=== PATIENT | male | born 1945 | race Caucasian/White ===

== ENCOUNTER 2021-05-01 13:20 | Inpatient (IN) ==
[2021-05-01] MEDS ORDERED: Naloxone 0.4 MG/ML INJ IVP PRN (15:52)
[2021-05-01] MEDS ORDERED: Ondansetron 4 MG/2 ML VIAL IVP PRN (15:52)
[2021-05-01] MEDS ORDERED: Dextrose Gel 15 GM/37.5 ML TUBE PO PRN ×2 (15:56)
[2021-05-01] MEDS ORDERED: D5% in Water 1,000 ML IVC PRN (15:56)
[2021-05-01] MEDS ORDERED: *HR* Dextrose 50 % in Water (Syg) 50 ML SYRINGE IVP PRN (15:56)
[2021-05-01] MEDS ORDERED: Perflutren Lipid Microsphere 1.3 ML in 0.9 % Sodium Chloride 8.7 ML IVP PRN (15:57)
[2021-05-01] MEDS ORDERED: *HR* Heparin 5,000 UNIT/ML VIAL IVP ONE (16:29)
[2021-05-01] MEDS ORDERED: *HR* Heparin 5,000 UNIT/ML VIAL IVP PRN ×2 (16:29)
[2021-05-01] MEDS ORDERED: Insulin NPH/REG 70/30 100 UNIT/ML (x5UNIT) SUBQ SCH ×2 (16:30→21:00)
[2021-05-01] MEDS: Insulin LISPRO 300 UNITS/3 ML VIAL SUBQ SCH ×2 (17:21→20:13)
[2021-05-01 18:09] LABS: Hematocrit 43.1 % (37.5-50.1); Hemoglobin 14.2 g/dL (12.9-16.9); Mean Corpuscular HGB Conc 32.9 g/dL (31.6-35.5); Mean Corpuscular Hemoglobin 29.5 pg (28.0-33.3); Mean Corpuscular Volume 89.6 fL (83.0-100.0); Mean Platelet Volume 9.7 fL (9.4-12.4); Platelet Count 224 K/mcL (140-400); Red Blood Count 4.81 M/mcL (4.19-5.50); Red Cell Distribution Width 12.5 % (11.5-14.5)
[2021-05-01 18:19] LABS: Heparin anti-factor XA UFH 0.46 IU/mL (0.30-0.70); Prothrombin Time 10.6 Seconds (9.4-12.1)
[2021-05-01] MEDS: Heparin 25,000 UNIT/250 ML 25,000 UNIT/250 ML IV.SOLN IVC SCH (18:40)
[2021-05-02 00:52] LABS: BUN/Creatinine Ratio 19 (6-26); Blood Urea Nitrogen 19 mg/dL (8-23); Calcium 9.2 mg/dL (8.6-10.3); Carbon Dioxide 26 mEq/L (23-29); Chloride 105 mEq/L (98-107); Chol/HDL Ratio 3.8 (0-4.9); Cholesterol 118 mg/dL (< 200); Glucose 103 mg/dL (70-105); HDL Cholesterol 31 mg/dL (40-59); LDL Cholesterol,Calculated 40 mg/dL (< 100); Magnesium 1.6 mg/dL (1.6-2.6); Osmolality,Calculated 289 (280-300); Potassium 4.3 mEq/L (3.5-5.1); Sodium 138 mEq/L (136-145); Triglycerides 234 mg/dL (< 150); eGFR For African Americans > 60 (> 60); eGFR For Non-African Americans > 60 (> 60)
[2021-05-02 00:53] LABS: Basophils % 0.3 %; Eosinophils # 0.2 K/mcL (0.0-0.6); Eosinophils % 1.7 %; Hematocrit 41.5 % (37.5-50.1); Hemoglobin 13.8 g/dL (12.9-16.9); Immature Granulocytes % 0.3 % (0-4); Lymphocytes # 2.8 K/mcL (0.6-4.6); Lymphocytes % 22.5 %; Mean Corpuscular HGB Conc 33.3 g/dL (31.6-35.5); Mean Corpuscular Hemoglobin 30.1 pg (28.0-33.3); Mean Corpuscular Volume 90.4 fL (83.0-100.0); Mean Platelet Volume 9.6 fL (9.4-12.4); Monocytes # 1.1 K/mcL (0.0-1.3); Monocytes % 8.9 %; Neutrophils # 8.2 K/mcL (1.6-8.9); Platelet Count 223 K/mcL (140-400); Red Blood Count 4.59 M/mcL (4.19-5.50); Red Cell Distribution Width 12.6 % (11.5-14.5); Segmented Neutrophils % 66.3 %; White Blood Count 12.4 K/mcL (4.3-11.1)
[2021-05-02 01:10] LABS: Estimated Average Glucose 214 mg/dl; Hemoglobin A1C 9.1 %
[2021-05-02] MEDS: Insulin LISPRO 300 UNITS/3 ML VIAL SUBQ SCH ×4 (07:29→19:44)
[2021-05-02 09:26] LABS: Bilirubin,Urine Negative (Negative); Blood,Urine Negative (Negative); Clarity,Urine Clear (Clear); Color,Urine Light-Yellow (Yellow); Glucose,Urine (UA) Normal (Normal); Ketones,Urine 10 mg/dL (Negative); Leukocyte Esterase,Urine Negative (Negative); Nitrite,Urine Negative (Negative); PH,Urine 5.5 pH Units (5.0-8.0); Protein,Urine 50 mg/dL (Neg-Trace); RBC,Urine 0-3 per hpf (0-3); Specific Gravity,Urine 1.018 (1.010-1.025); Urobilinogen,Urine Normal (Normal); WBC,Urine 0-3 per hpf (0-3)
[2021-05-02] MEDS: Aspirin Enteric Coated 81 MG Tablet PO SCH (14:05)
[2021-05-02] MEDS: lisinopriL 5 MG TABLET PO SCH (14:05)
[2021-05-02] MEDS ORDERED: 0.9 % Sodium Chloride 2,000 ML ONE (15:49)
[2021-05-02] MEDS ORDERED: ISOVUE-370 200 ML INFUS..BTL ONE ×2 (15:49→16:54)
[2021-05-02] MEDS ORDERED: *HR* Heparin 10,000 UNIT/10 ML VIAL ONE ×2 (15:49→16:34)
[2021-05-02] MEDS ORDERED: Heparin 1,000 UNITS/500 mL 500 ML ONE ×2 (15:49→17:09)
[2021-05-02] MEDS ORDERED: Nitroglycerin 1,000 MCG/5 ML VIAL IV ONE (15:49)
[2021-05-02] MEDS ORDERED: *HR* FentaNYL (PF) 100 MCG/2 ML VIAL ONE (15:53)
[2021-05-02] MEDS ORDERED: *HR* Midazolam HCl 2 MG/2 ML VIAL ONE (15:53)
[2021-05-02] MEDS ORDERED: Tirofiban 5 MG/100 mL 5 MG/100 ML VIAL IV ONE (17:39)
[2021-05-02] MEDS: Isosorbide MONOnitrate (24 HR) 30 MG TAB.ER.24H PO SCH (19:22)
[2021-05-02] MEDS: Heparin 25,000 UNIT/250 ML 25,000 UNIT/250 ML IV.SOLN IVC SCH (19:30)
[2021-05-03 01:13] LABS: Hematocrit 40.5 % (37.5-50.1); Hemoglobin 13.6 g/dL (12.9-16.9)
[2021-05-03 01:32] LABS: Troponin I 0.64 ng/mL (< 0.04)
[2021-05-03 01:40] LABS: BUN/Creatinine Ratio 21 (6-26); Blood Urea Nitrogen 20 mg/dL (8-23); eGFR For African Americans > 60 (> 60); eGFR For Non-African Americans > 60 (> 60)
[2021-05-03 02:46] VITALS: TEMP 97.5
[2021-05-03] MEDS: Insulin LISPRO 300 UNITS/3 ML VIAL SUBQ SCH ×2 (08:38→12:02)
[2021-05-03 08:41] VITALS: BP 129/77; PULSE 81; O2SAT 94
[2021-05-03] MEDS: Isosorbide MONOnitrate (24 HR) 30 MG TAB.ER.24H PO SCH (08:42)
[2021-05-03] MEDS: Aspirin Enteric Coated 81 MG Tablet PO SCH (08:42)
[2021-05-03] MEDS: lisinopriL 5 MG TABLET PO SCH (08:43)
== END 2021-05-03 12:22 | disposition home or self-care (01) | DRG 247 ==
LOC: 3BNU → SUATTDRO 05-02 15:40
PROVIDERS: ADMIT Pharmacist; ATTEND Registered Nurse